=== PATIENT | male | born 1975 | race Two or more races ===

== ENCOUNTER 2020-12-09 09:25 | Inpatient (IN) | payer SELFPAY ==
[~2020-12-09] VITALS: Ht 167.6 cm; Wt 72.5 kg
[~2020-12-09 09:25] MED LIST: ACEDIPPM; AMOX500 PO; CIPR500 PO; CLAR500 PO; CYCL10 PO; Crutch1 EACH MISC; HYDACE5 PO; IBUP600 PO; NAPR500 PO; NAPR550 PO; Naprosyn500 MG PO; OMEP40CA12 PO; OXYACE5T PO; PENVK500 PO; PROM25 PO; RXNAPNA550 PO; TRAM50 PO; Ultram50 MG PO
[2020-12-09 10:35] LABS: BASOPHILS ABSOLUTE AUTO 0.04 K/mm3 (0.00-0.23); BASOPHILS PERCENT AUTO 0 % (0-2); EOSINOPHILS PERCENT AUTO 3 % (0-6); Hemoglobin 16.2 g/dL (13.5-17.5); IMMATURE GRAN ABSOLUTE AUTO 0.03 K/mm3 (0.00-0.10); IMMATURE GRAN PERCENT AUTO 0 % (0-1); LYMPHOCYTES ABSOLUTE AUTO 1.76 K/mm3 (0.84-5.20); LYMPHOCYTES PERCENT AUTO 19 % (21-46); MONOCYTES ABSOLUTE AUTO 0.58 K/mm3 (0.16-1.47); MONOCYTES PERCENT AUTO 6 % (4-13); Mean Corpuscular HGB Conc 34.5 g/dL (31.5-36.5); Mean Corpuscular Volume 87 fL (80-100); Mean Platelet Volume 11.1 fL (9.1-12.4); NEUTROPHILS ABSOLUTE AUTO 6.64 K/mm3 (1.96-9.15); NEUTROPHILS PERCENT AUTO 71 % (41-73); Platelet Count 383 K/mm3 (150-400); RDW Standard Deviation 44.1 fL (35.1-46.3); White Blood Cell Count 9.35 K/mm3 (4.00-11.30)
[2020-12-09 11:06] LABS: Alanine Aminotransfer (ALT/SGP 95 U/L (12-78); Albumin, Blood 3.2 g/dL (3.4-5.0); Alk Phos 81 U/L (50-136); Anion Gap 7 mmol/L (6-16); Aspartate Aminotrans (AST/SGOT 48 U/L (12-37); Bilirubin, Total 1.1 mg/dL (0.1-1.0); Blood Urea Nitrogen 14 mg/dL (8-24); Bun/Creatinine Ratio 16.8 (12.0-20.0); CO2, Blood 21 mmol/L (21-32); Calcium, Blood 8.7 mg/dL (8.5-10.1); Chloride, Blood 112 mmol/L (98-108); Creatinine, Blood 0.84 mg/dL (0.60-1.20); Globulin, Blood 3.3 g/dL (2.2-4.0); Glomerular Filtration Rate >60 (60-); Glucose, Blood 107 mg/dL (70-99); Potassium, Blood 4.3 mmol/L (3.5-5.5); Sodium, Blood 140 mmol/L (136-145); Total Protein, Blood 6.5 g/dL (6.4-8.2); Troponin I <0.015 ng/mL (0.000-0.040)
[2020-12-09 11:49] LABS: Source, Urine Clean Catch
[2020-12-09 11:56] LABS: Appearance, Urine Clear (Clear); Bilirubin, Urine Neg (Neg); Blood, Urine Neg (Neg); Color, Urine Yellow (P-Yellow); Glucose Qualitative, Urine Neg (Neg); Ketones, Urine Neg (Neg); Leukocyte Esterase, Urine Neg (Neg); Nitrite, Urine Neg (Neg); Protein, Urine Neg (Neg); Specific Gravity, Urine 1.015 (1.003-1.022); Urobilinogen, Urine NORM (Normal)
[2020-12-09 12:13] LABS: U Amphetamine Screen DETECTED; U Barbituate Screen Not Detected; U Benzodiazapine Screen Not Detected; U Buprenorphine Screen Not Detected; U Cannabinoids Screen Not Detected; U Cocaine Screen Not Detected; U Methadone Screen Not Detected; U Methamphetamine Screen DETECTED; U Opiates Screen Not Detected; U Oxycodone Screen Not Detected; U Phencyclidine Screen Not Detected; U Propoxyphene Screen Not Detected
--- NOTE | 2020-12-09 16:43 | NUR ---
Patient is a 44 year old male admitted to medical floor Room 340 for new onset of CHF. He was initially presented to ED for worsening shortness of breath for past three days. Per ED report, patient started to have SOB after removing" christian water " from mother's house. Lab work at ED indicate elevated D-Dimer 1.01, tested positive for methamphetamine , BNP 500 , and Chest x-ray shows congestive failure and pulmonary emboli. During admission assesment , patient is alert and oriented x4 , able to give history of current medical condition. 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 States that after getting home he started to have shortness of breath , dizziness and tiredness, and today he came to ED for evaluation. Reports that he lives in [place] and came here to help a friend.C/o of mild SOB. Denies any headache, nausea , chest pain and dizziness. Denies current recreational drug use except percocet that he had from his mother three days ago. Patient is a current smoke weed/marijuana . patient has multiple tatoos on him. He was oriented to the room and all safety measures place.Physical exam is unremarkable. Will continue to monitor.
--- NOTE | 2020-12-10 04:41 | NUR ---
SHIFT SUMMARY PT [id number]. ADMITTED FOR NEW ONSET OF CHF. DENIES CHEST PAIN. PT C/O HEADACHE THROUGHOUT SHIFT, MEDICATED PER APR. NO SIGNIFICANT EVENTS DURING THIS SHIFT.
[2020-12-10 09:25] LABS: BASOPHILS ABSOLUTE AUTO 0.03 K/mm3 (0.00-0.23); BASOPHILS PERCENT AUTO 0 % (0-2); EOSINOPHILS ABSOLUTE AUTO 0.45 K/mm3 (0.00-0.68); EOSINOPHILS PERCENT AUTO 5 % (0-6); Hematocrit 48.5 % (37.0-53.0); IMMATURE GRAN ABSOLUTE AUTO 0.03 K/mm3 (0.00-0.10); IMMATURE GRAN PERCENT AUTO 0 % (0-1); LYMPHOCYTES ABSOLUTE AUTO 1.48 K/mm3 (0.84-5.20); LYMPHOCYTES PERCENT AUTO 17 % (21-46); MONOCYTES ABSOLUTE AUTO 0.64 K/mm3 (0.16-1.47); MONOCYTES PERCENT AUTO 7 % (4-13); Mean Corpuscular HGB 29.2 pg (26.0-34.0); Mean Corpuscular HGB Conc 35.1 g/dL (31.5-36.5); Mean Corpuscular Volume 83 fL (80-100); Mean Platelet Volume 11.3 fL (9.1-12.4); NEUTROPHILS ABSOLUTE AUTO 6.03 K/mm3 (1.96-9.15); NEUTROPHILS PERCENT AUTO 70 % (41-73); Platelet Count 349 K/mm3 (150-400); RDW Coefficient Variation 13.8 % (11.7-14.2); RDW Standard Deviation 41.9 fL (35.1-46.3); Red Blood Cell Count 5.82 M/mm3 (4.30-5.90); White Blood Cell Count 8.66 K/mm3 (4.00-11.30)
[2020-12-10 09:52] LABS: Alanine Aminotransfer (ALT/SGP 87 U/L (12-78); Albumin, Blood 3.3 g/dL (3.4-5.0); Albumin/Globulin Ratio 0.9 (0.8-1.8); Alk Phos 88 U/L (50-136); Anion Gap 7 mmol/L (6-16); Aspartate Aminotrans (AST/SGOT 36 U/L (12-37); Bilirubin, Total 1.3 mg/dL (0.1-1.0); Blood Urea Nitrogen 18 mg/dL (8-24); CO2, Blood 25 mmol/L (21-32); Calcium, Blood 8.9 mg/dL (8.5-10.1); Chloride, Blood 109 mmol/L (98-108); Globulin, Blood 3.6 g/dL (2.2-4.0); Glomerular Filtration Rate >60 (60-); Glucose, Blood 109 mg/dL (70-99); Potassium, Blood 3.4 mmol/L (3.5-5.5); Sodium, Blood 141 mmol/L (136-145); Total Protein, Blood 6.9 g/dL (6.4-8.2)
--- NOTE | 2020-12-10 15:23 | NUR ---
Alert and oriented x4 , independent with ADLS. C/O headache, tylenol was given and it was effective . vital signs are improving. Patient left AMA at 1530.
== END 2020-12-10 15:25 | disposition left against medical advice (07) | DRG 293 ==
LOC: ER 09:25 → MEDS 09:26
PROVIDERS: Emergency Medicine; Nurse Practitioner Acute Care; Physician Assistant; ADMIT Hospitalist
DX: I50.20 Unspecified systolic (congestive) heart failure (principal); R07.9 Chest pain, unspecified; F15.10 Other stimulant abuse, uncomplicated; I10 Essential (primary) hypertension; Z20.822 Contact with and (suspected) exposure to COVID-19; I08.1 Rheumatic disorders of both mitral and tricuspid valves; Z53.29 Procedure and treatment not carried out because of patient's decision for other reasons; Z87.891 Personal history of nicotine dependence; Z85.01 Personal history of malignant neoplasm of esophagus; Z91.14 Patient's other noncompliance with medication regimen; Z86.61 Personal history of infections of the central nervous system
CPT/HCPCS: 36415; 71045; 71260; 80053; 81003; 83735; 83880; 84484; 85025; 85379; 86140; 93005; 93010; 96372; 96374; 96375; 96376; 99285-25; A9270; C8929; G0378; J1650; J1940; J3010; Q9957; Q9967

== ENCOUNTER → 2022-12-23 | Outpatient (CLI) | payer OTHER ==
[2022-12-23 19:05] LABS: BASOPHILS ABSOLUTE AUTO 0.03 K/mm3 (0.00-0.23); BASOPHILS PERCENT AUTO 1 % (0-2); EOSINOPHILS PERCENT AUTO 5 % (0-6); Hematocrit 42.7 % (37.0-53.0); IMMATURE GRAN ABSOLUTE AUTO 0.03 K/mm3 (0.00-0.10); IMMATURE GRAN PERCENT AUTO 1 % (0-1); LYMPHOCYTES ABSOLUTE AUTO 1.95 K/mm3 (0.84-5.20); LYMPHOCYTES PERCENT AUTO 30 % (21-46); MONOCYTES ABSOLUTE AUTO 0.73 K/mm3 (0.16-1.47); MONOCYTES PERCENT AUTO 11 % (4-13); Mean Corpuscular HGB 29.9 pg (26.0-34.0); Mean Corpuscular HGB Conc 35.1 g/dL (31.5-36.5); Mean Corpuscular Volume 85 fL (80-100); Mean Platelet Volume 10.9 fL (9.1-12.4); NEUTROPHILS ABSOLUTE AUTO 3.53 K/mm3 (1.96-9.15); NEUTROPHILS PERCENT AUTO 54 % (41-73); Platelet Count 301 K/mm3 (150-400); RDW Coefficient Variation 12.6 % (11.7-14.2); RDW Standard Deviation 38.5 fL (35.1-46.3); Red Blood Cell Count 5.02 M/mm3 (4.30-5.90); White Blood Cell Count 6.57 K/mm3 (4.00-11.30)
[2022-12-23 19:54] LABS: Alanine Aminotransfer (ALT/SGP 68 U/L (12-78); Albumin, Blood 4.1 g/dL (3.4-5.0); Alk Phos 78 U/L (50-136); Anion Gap 5 mmol/L (6-16); Aspartate Aminotrans (AST/SGOT 19 U/L (12-37); Bilirubin, Total 0.4 mg/dL (0.1-1.0); Blood Urea Nitrogen 20 mg/dL (8-24); Bun/Creatinine Ratio 25.4 (12.0-20.0); CHOL/HDL RATIO 4.7; CO2, Blood 24 mmol/L (21-32); Chloride, Blood 108 mmol/L (98-108); Cholesterol 223 mg/dL (50-200); Creatinine, Blood 0.79 mg/dL (0.60-1.20); Globulin, Blood 4.2 g/dL (2.2-4.0); Glomerular Filtration Rate 111 (60-); Glucose, Blood 98 mg/dL (70-99); HDL Cholesterol 47 mg/dL (>39); LDL/HDL RATIO 3.1; Low Density Lipoprotein Chol 146 mg/dL (0-110); Sodium, Blood 137 mmol/L (136-145); Total Protein, Blood 8.3 g/dL (6.4-8.2); Triglycerides 151 mg/dL (30-160); Very Low Density Lipoprot Chol 30 mg/dL (6-32)
== END ==
LOC: LAB 18:51 → LAB SHORT 18:51
PROVIDERS: Student in an Organized Health Care Education/Training Program
DX: I50.22 Chronic systolic (congestive) heart failure (principal); Z13.1 Encounter for screening for diabetes mellitus; Z11.59 Encounter for screening for other viral diseases; Z11.4 Encounter for screening for human immunodeficiency virus [HIV]
CPT/HCPCS: 80053; 80061; 83036; 84443; 85025; 86803

== ENCOUNTER 2023-08-09 14:56 | Emergency (ER) | payer OTHER ==
[~2023-08-09] VITALS: Ht 167.6 cm; Wt 76.2 kg
[2023-08-09 15:07] VITALS: BP 184/118
[2023-08-09] MEDS ORDERED: Acetaminophen 500 MG Tab PO ONE (16:20)
[2023-08-09] MEDS ORDERED: Ketorolac Tromethamine 30mg Vial IM ONE (16:20)
== END 2023-08-09 16:45 | disposition home or self-care (01) ==
LOC: ER 14:56
DX: G62.9 Polyneuropathy, unspecified (principal); I10 Essential (primary) hypertension; Z91.018 Allergy to other foods
CPT/HCPCS: 96372; 99283-25; A9270; J1885

== ENCOUNTER 2023-09-09 17:28 | Observation (INO) | payer OTHER ==
[~2023-09-09] VITALS: Ht 167.6 cm; Wt 77.6 kg
[2023-09-09 18:14] LABS: BASOPHILS ABSOLUTE AUTO 0.02 K/mm3 (0.00-0.23); BASOPHILS PERCENT AUTO 0 % (0-2); EOSINOPHILS ABSOLUTE AUTO 0.39 K/mm3 (0.00-0.68); EOSINOPHILS PERCENT AUTO 5 % (0-6); Hemoglobin 14.4 g/dL (13.5-17.5); IMMATURE GRAN ABSOLUTE AUTO 0.03 K/mm3 (0.00-0.10); IMMATURE GRAN PERCENT AUTO 0 % (0-1); LYMPHOCYTES ABSOLUTE AUTO 1.33 K/mm3 (0.84-5.20); LYMPHOCYTES PERCENT AUTO 17 % (21-46); MONOCYTES ABSOLUTE AUTO 0.35 K/mm3 (0.16-1.47); MONOCYTES PERCENT AUTO 4 % (4-13); Mean Corpuscular HGB 29.2 pg (26.0-34.0); Mean Corpuscular HGB Conc 34.3 g/dL (31.5-36.5); Mean Corpuscular Volume 85 fL (80-100); Mean Platelet Volume 10.9 fL (9.1-12.4); NEUTROPHILS ABSOLUTE AUTO 5.93 K/mm3 (1.96-9.15); NEUTROPHILS PERCENT AUTO 74 % (41-73); Platelet Count 280 K/mm3 (150-400); RDW Coefficient Variation 12.8 % (11.7-14.2); RDW Standard Deviation 39.4 fL (35.1-46.3); Red Blood Cell Count 4.93 M/mm3 (4.30-5.90); White Blood Cell Count 8.05 K/mm3 (4.00-11.30)
[2023-09-09 18:37] LABS: Albumin, Blood 3.2 g/dL (3.4-5.0); Albumin/Globulin Ratio 0.9 (0.8-1.8); Bilirubin, Total 0.4 mg/dL (0.1-1.0); Bun/Creatinine Ratio 11.5 (12.0-20.0); Calcium, Blood 8.4 mg/dL (8.5-10.1); Creatinine, Blood 1.04 mg/dL (0.60-1.20); Globulin, Blood 3.5 g/dL (2.2-4.0); Potassium, Blood 3.6 mmol/L (3.5-5.5); Total Protein, Blood 6.7 g/dL (6.4-8.2)
[2023-09-09] MEDS ORDERED: Lidocaine 2% Viscous Soln 15 ML UDC PO ONE (20:25)
[2023-09-09] MEDS ORDERED: Mag Hydrox/AL Hydrox/Simeth 30 ML UDC PO ONE (20:25)
[2023-09-09] MEDS ORDERED: CARVEDILOL6.25 MG PO (20:52)
[2023-09-09] MEDS ORDERED: LOSA25 PO (20:53)
[2023-09-09] MEDS ORDERED: AMLODIPINE BESYL5 MG PO (20:53)
[2023-09-09] MEDS ORDERED: Ketorolac Tromethamine 30mg Vial IV ONE (21:55)
[2023-09-10] MEDS ORDERED: Nitroglycerin 0.4 MG SUBL SL PRN (00:10)
[2023-09-10] MEDS ORDERED: FentaNYL Citrate 50 MCG/ML 2 ML Injection IV PRN (00:10)
[2023-09-10] MEDS ORDERED: Ondansetron HCl 2 MG / ML 2ML Vial IV PRN (00:10)
[2023-09-10] MEDS ORDERED: NS 1,000 ML IV ONE (00:35)
[2023-09-10] MEDS ORDERED: Mag Hydrox/Al Hydrox/Simeth 72 ML,Lidocaine 2% Viscous Soln 36 ML,Atropine/Scopalam/Hyo... PO PRN (00:35)
[2023-09-10 03:39] VITALS: BP 130/95
[2023-09-10] MEDS ORDERED: Potassium Chloride 40 MEQ in NS 250 ML IV ONE (03:45)
[2023-09-10 05:03] LABS: BASOPHILS ABSOLUTE AUTO 0.02 K/mm3 (0.00-0.23); BASOPHILS PERCENT AUTO 0 % (0-2); EOSINOPHILS ABSOLUTE AUTO 0.35 K/mm3 (0.00-0.68); EOSINOPHILS PERCENT AUTO 6 % (0-6); Hematocrit 39.5 % (37.0-53.0); Hemoglobin 13.3 g/dL (13.5-17.5); IMMATURE GRAN ABSOLUTE AUTO 0.01 K/mm3 (0.00-0.10); IMMATURE GRAN PERCENT AUTO 0 % (0-1); LYMPHOCYTES ABSOLUTE AUTO 2.09 K/mm3 (0.84-5.20); LYMPHOCYTES PERCENT AUTO 33 % (21-46); MONOCYTES ABSOLUTE AUTO 0.56 K/mm3 (0.16-1.47); MONOCYTES PERCENT AUTO 9 % (4-13); Mean Corpuscular HGB 28.8 pg (26.0-34.0); Mean Corpuscular HGB Conc 33.7 g/dL (31.5-36.5); Mean Corpuscular Volume 86 fL (80-100); Mean Platelet Volume 10.9 fL (9.1-12.4); NEUTROPHILS ABSOLUTE AUTO 3.31 K/mm3 (1.96-9.15); NEUTROPHILS PERCENT AUTO 52 % (41-73); Platelet Count 252 K/mm3 (150-400); RDW Coefficient Variation 12.7 % (11.7-14.2); RDW Standard Deviation 39.2 fL (35.1-46.3); Red Blood Cell Count 4.62 M/mm3 (4.30-5.90); White Blood Cell Count 6.34 K/mm3 (4.00-11.30)
[2023-09-10 05:27] LABS: Albumin, Blood 3.1 g/dL (3.4-5.0); Bilirubin, Total 0.4 mg/dL (0.1-1.0); Bun/Creatinine Ratio 15.6 (12.0-20.0); Calcium, Blood 8.6 mg/dL (8.5-10.1); Creatinine, Blood 1.09 mg/dL (0.60-1.20); Potassium, Blood 3.5 mmol/L (3.5-5.5); Total Protein, Blood 6.1 g/dL (6.4-8.2)
[2023-09-10 07:43] VITALS: BP 150/108
[2023-09-10] MEDS ORDERED: Enoxaparin 40 MG/0.4 ML SYR SC SCH (09:00)
[2023-09-10] MEDS ORDERED: Cyclobenzaprine HCl 10 MG Tab PO PRN (09:00)
[2023-09-10] MEDS ORDERED: Losartan Potassium 50 MG Tab PO SCH (09:00)
[2023-09-10] MEDS ORDERED: AmLODIPine Besylate 5 MG Tab PO SCH (09:00)
[2023-09-10] MEDS ORDERED: Cyclobenzaprine HCl 10 MG Tab PO ONE (09:00)
[2023-09-10] MEDS ORDERED: Carvedilol 6.25 MG Tab PO SCH (09:00)
[2023-09-10] MEDS ORDERED: CYCL10 PO (12:08)
--- NOTE | 2023-09-10 12:29 | NUR ---
DISCHARGE PT HAS DENIED CHEST PAIN THIS SHIFT. DISCHARGE ORDERS RECIEVED. PT VERBALIZED UNDERSTANDING OF MEDICATIONS AND PROVIDER FOLLOW UP INSTRUCTIONS. IV DC'D. PT DRESSED SELF. PT TO BE PICKED UP BY SPOUSE.
== END 2023-09-10 13:00 | disposition home or self-care (01) ==
LOC: ER 17:28 → ERHOLD 17:29 → PCU 09-10 03:32
PROVIDERS: Physician Assistant; ADMIT Internal Medicine
DX: R07.89 Other chest pain (principal); I11.0 Hypertensive heart disease with heart failure; I50.22 Chronic systolic (congestive) heart failure; Z87.891 Personal history of nicotine dependence; Z91.018 Allergy to other foods; Z79.899 Other long term (current) drug therapy
CPT/HCPCS: 36415; 71046; 80053; 83690; 83735; 83880; 84484; 85025; 85379; 93005; 93010; 96372; 96374; 99285-25; A9270; G0378; J1650; J1885; J3480; J7030; J7050

== ENCOUNTER 2024-05-26 04:34 | Inpatient (IN) | payer OTHER ==
[~2024-05-26] VITALS: Ht 167.6 cm; Wt 65.6 kg
[~2024-05-26 04:34] MED LIST changes: +AMLODIPINE BESYL5 MG PO; +CARVEDILOL6.25 MG PO; +LOSA25 PO
[2024-05-26] MEDS ORDERED: LOSA50 PO (04:50)
[2024-05-26] MEDS ORDERED: SPIRONOLACTONE50 MG PO (04:51)
[2024-05-26] MEDS ORDERED: STEGLATRO5 MG PO (04:51)
[2024-05-26 05:36] LABS: BASOPHILS ABSOLUTE AUTO 0.04 K/mm3 (0.00-0.23); BASOPHILS PERCENT AUTO 0 % (0-2); EOSINOPHILS ABSOLUTE AUTO 0.28 K/mm3 (0.00-0.68); EOSINOPHILS PERCENT AUTO 3 % (0-6); Hematocrit 44.4 % (37.0-53.0); Hemoglobin 14.7 g/dL (13.5-17.5); IMMATURE GRAN ABSOLUTE AUTO 0.03 K/mm3 (0.00-0.10); IMMATURE GRAN PERCENT AUTO 0 % (0-1); LYMPHOCYTES ABSOLUTE AUTO 1.56 K/mm3 (0.84-5.20); LYMPHOCYTES PERCENT AUTO 16 % (21-46); MONOCYTES ABSOLUTE AUTO 0.69 K/mm3 (0.16-1.47); MONOCYTES PERCENT AUTO 7 % (4-13); Mean Corpuscular HGB 29.8 pg (26.0-34.0); Mean Corpuscular HGB Conc 33.1 g/dL (31.5-36.5); Mean Corpuscular Volume 90 fL (80-100); Mean Platelet Volume 10.9 fL (9.1-12.4); NEUTROPHILS ABSOLUTE AUTO 7.45 K/mm3 (1.96-9.15); NEUTROPHILS PERCENT AUTO 74 % (41-73); Platelet Count 310 K/mm3 (150-400); Red Blood Cell Count 4.93 M/mm3 (4.30-5.90); White Blood Cell Count 10.05 K/mm3 (4.00-11.30)
[2024-05-26 06:01] LABS: Albumin, Blood 3.1 g/dL (3.4-5.0); Albumin/Globulin Ratio 0.9 (0.8-1.8); Bilirubin, Total 0.5 mg/dL (0.1-1.0); Bun/Creatinine Ratio 19.4 (12.0-20.0); Calcium, Blood 8.2 mg/dL (8.5-10.1); Creatinine, Blood 1.55 mg/dL (0.60-1.20); Globulin, Blood 3.4 g/dL (2.2-4.0); Potassium, Blood 4.5 mmol/L (3.5-5.5); Total Protein, Blood 6.5 g/dL (6.4-8.2)
[2024-05-26] MEDS ORDERED: Morphine Sulfate 4 MG/1 ML Injection IV ONE (06:30)
[2024-05-26] MEDS ORDERED: Furosemide 10 MG / ML 2ML Vial IV ONE ×2 (06:30→07:15)
[2024-05-26] MEDS ORDERED: Ondansetron HCl 2 MG / ML 2ML Vial IV ONE (06:55)
[2024-05-26] MEDS ORDERED: Polyethylene Glycol 3350 17 gm PO PRN (07:40)
[2024-05-26] MEDS ORDERED: FLU VACC TS2024-25(6MOS UP)/PF 45 MCG/0.5 ML SYRINGE IM SCH (07:45)
[2024-05-26] MEDS ORDERED: Prochlorperazine Edisylate 10 mg Vial IV PRN (07:45)
[2024-05-26] MEDS ORDERED: OxyCODONE HCL 5 MG TAB PO PRN (07:45)
[2024-05-26] MEDS ORDERED: Carvedilol 6.25 MG Tab PO SCH (08:00)
[2024-05-26] MEDS ORDERED: Empagliflozin 10 MG TAB PO SCH (09:00)
[2024-05-26] MEDS ORDERED: Furosemide 10 MG/ML 4ML Vial IV SCH (09:00)
[2024-05-26] MEDS ORDERED: Multivitamins 1 Tab PO SCH (09:00)
[2024-05-26 13:01] LABS: U Opiates Screen DETECTED
[2024-05-26 13:02] LABS: U Amphetamine Screen Not Detected; U Barbituate Screen Not Detected; U Benzodiazapine Screen Not Detected; U Buprenorphine Screen Not Detected; U Cannabinoids Screen Not Detected; U Cocaine Screen Not Detected; U Methadone Screen Not Detected; U Methamphetamine Screen Not Detected; U Oxycodone Screen Not Detected; U Phencyclidine Screen Not Detected
[2024-05-26 14:49] VITALS: BP 136/108
--- NOTE | 2024-05-26 17:09 | NUR ---
ADMITTED FROM ER, ALERT AND ORIENTED X4, SKIN INTACT, TELE NSR 60S, ECHO DONE ON FLOOR, PALLIATIVE CARE NOTIFIED OF CONSULT. 3L O2, LUNG BASES DIMINISHED, STAND BY ASSIST TO BSC, CALL LIGHT WITH IN REACH, WILL RELAY TO PM RN
[2024-05-26 20:57] VITALS: BP 111/70
[2024-05-26] MEDS ORDERED: Docusate Sodium/Senna 1 Tab PO SCH (21:00)
[2024-05-27 05:21] VITALS: BP 130/105
[2024-05-27 06:41] LABS: Hematocrit 44.7 % (37.0-53.0); Hemoglobin 15.2 g/dL (13.5-17.5); Mean Corpuscular HGB 29.7 pg (26.0-34.0); Mean Corpuscular Volume 88 fL (80-100); Mean Platelet Volume 11.8 fL (9.1-12.4); Platelet Count 296 K/mm3 (150-400); RDW Coefficient Variation 14.3 % (11.7-14.2); RDW Standard Deviation 45.6 fL (35.1-46.3); Red Blood Cell Count 5.11 M/mm3 (4.30-5.90); White Blood Cell Count 7.51 K/mm3 (4.00-11.30)
[2024-05-27 07:15] LABS: Magnesium, Blood 2.1 mg/dL (1.6-2.4)
[2024-05-27 07:16] LABS: Albumin, Blood 2.9 g/dL (3.4-5.0); Anion Gap 9 mmol/L (3-11); Blood Urea Nitrogen 39 mg/dL (8-24); Bun/Creatinine Ratio 31.5 (12.0-20.0); CO2, Blood 25 mmol/L (21-32); Calcium, Blood 8.1 mg/dL (8.5-10.1); Chloride, Blood 106 mmol/L (98-108); Creatinine, Blood 1.24 mg/dL (0.60-1.20); Glomerular Filtration Rate 72 (60-); Glucose, Blood 97 mg/dL (70-99); Phosphorus, Blood 4.1 mg/dL (2.5-4.9); Potassium, Blood 3.8 mmol/L (3.5-5.5); Sodium, Blood 136 mmol/L (136-145)
[2024-05-27 07:27] VITALS: BP 126/104
[2024-05-27] MEDS ORDERED: Losartan Potassium 25 MG Tab PO SCH (09:00)
[2024-05-27] MEDS ORDERED: Enoxaparin 40 MG/0.4 ML SYR SC SCH (09:00)
[2024-05-27] MEDS ORDERED: Spironolactone 12.5 MG TAB PO SCH (09:00)
[2024-05-27 16:49] VITALS: BP 107/72
--- NOTE | 2024-05-27 18:05 | NUR ---
ALERT AND ORIENTED X4, CLAMMY AND DYAPHRORETIC, CLEARLY MAKES NEEDS KNOWN, PATIENT SIMONE DOWN TO 49 WHILE SLEEPING, RELAYED TO DR FREY, PATIENT ATE ALL MEALS, ENCOURAGED TO DEEP BREATH, 2.5 L VIA NC, CALL LIGHT WITH IN REACH, WILL RELAY TO PM RN
[2024-05-27 19:59] VITALS: BP 128/97
[2024-05-28 04:53] VITALS: BP 109/81
--- NOTE | 2024-05-28 05:22 | NUR ---
SHIFT SUMMARY PT IS ALERT AND ORIENTED TIMES 4. PT IS ADMITTED FOR ACUTE HYPOXIC RESPIRATORY FAILURE. PT APPEARED TO BE SLEEPING ON AND OFF THROUGH THE NIGHT. PT WAS RECEPTIVE TO CARE. APPROPRIATE WITH CALL LIGHT, TELE SINUS RHYTHM ON 2.5L O2. BED IN LOW POSITION, CALL LIGHT WITHIN REACH, RAILS TIMES 2.
[2024-05-28 05:29] LABS: Hematocrit 48.3 % (37.0-53.0); Hemoglobin 16.3 g/dL (13.5-17.5); Mean Corpuscular HGB 29.5 pg (26.0-34.0); Mean Corpuscular HGB Conc 33.7 g/dL (31.5-36.5); Mean Corpuscular Volume 87 fL (80-100); Mean Platelet Volume 11.2 fL (9.1-12.4); Platelet Count 324 K/mm3 (150-400); RDW Coefficient Variation 14.4 % (11.7-14.2); RDW Standard Deviation 45.3 fL (35.1-46.3); Red Blood Cell Count 5.53 M/mm3 (4.30-5.90); White Blood Cell Count 8.41 K/mm3 (4.00-11.30)
[2024-05-28 06:00] LABS: Albumin, Blood 3.3 g/dL (3.4-5.0); Anion Gap 9 mmol/L (3-11); Blood Urea Nitrogen 38 mg/dL (8-24); Bun/Creatinine Ratio 29.7 (12.0-20.0); CO2, Blood 26 mmol/L (21-32); Calcium, Blood 8.7 mg/dL (8.5-10.1); Chloride, Blood 104 mmol/L (98-108); Creatinine, Blood 1.28 mg/dL (0.60-1.20); Glomerular Filtration Rate 69 (60-); Glucose, Blood 97 mg/dL (70-99); Magnesium, Blood 2.2 mg/dL (1.6-2.4); Phosphorus, Blood 4.1 mg/dL (2.5-4.9); Potassium, Blood 4.1 mmol/L (3.5-5.5); Sodium, Blood 135 mmol/L (136-145)
[2024-05-28 07:47] VITALS: BP 129/99
[2024-05-28 16:19] VITALS: BP 112/81
--- NOTE | 2024-05-28 18:00 | NUR ---
NO CHANGES, ALERT AND ORIENTED X4, SHOWERING NOW, GOOD APPETITE, CALL LIGHT WITH IN REACH, WILL RELAY TO PM RN
--- NOTE | 2024-05-28 18:59 | NUR ---
INITIAL PALLIATIVE CARE VISIT: LATE ENTRY VISIT 05/27/24 AT 1345. MET WITH PT IN ROOM. DISCUSSED GOALS OF CARE. PT WANTS TO WEAN OFF OXYGEN SO HE CAN BE DISCHARGED FROM HOSPITAL. 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 PT DISCUSSES BARRIERS TO HOUSING. HE REPORTS HIM AND HIS WERE LIVING WITH [facility] BUT A FRIEND OF HIS BROUGHT MARIJUANA TO HER HOUSE AND WHEN IT FELL OUT OF HIS POCKET IN FRONT OF THE MIL, SHE DECIDED TO EVICT HIM FROM THE HOUSE. HE NOW LIVES AT [facility] IN A [place]ENT. HE DOES NOT HAVE ACCESS TO ELECTRICITY BUT HIS FRIEND DOES HAVE A GAS GENERATOR. PT STATES HE HAS GOAL TO STAY CLEAN FROM DRUGS BECAUSE IT IS WHAT CAUSED HIS CHF IN THE FIRST PLACE. HIS PCP PRESCRIBED MUSCLE RELAXERS INSTEAD OF NARCOTICS TO ASSIST WITH LOWER BACK PAIN MANAGEMENT AT HIS REQUEST. PT DOES STATE HE HAD DIFFICULTY GETTING TO APPOINTMENTS. HE WAS NOT AWARE HE HAS RIDE BENEFITS. NOW HE KNOWS HE WILL GO TO APPOINTMENTS. PT DOES NOT WISH TO MOVE OUT OF TOWN FOR WORK BECAUSE HIS STILL LIVES WITH HER MOTHER AND HE WANTS TO STAY CLOSE TO HER. PT HAS FOLLOWED UP WITH SERVICES ABOUT HOUSING BUT HAS NOT GOTTEN ANY UPDATES. ENCOURAGED PT TO CONTINUE TO REACH OUT TO SERVICES TO ENQUIRE ABOUT HOUSING. BARRIERS: NO ELECTRICITY AT HOME AND CURRENTLY ON 2.5 LPM VIA AR.
[2024-05-28 19:09] VITALS: BP 121/84
[2024-05-28 23:19] VITALS: BP 115/83
[2024-05-29 03:15] VITALS: BP 126/92
--- NOTE | 2024-05-29 06:42 | NUR ---
SHIFT SUMMARY PT IS ALERT AND ORIENTED TIMES 4. PT IS ADMITTED FOR ACUTE HYPOXIC RESPIRATORY FAILURE.1 PT APPEARED TO BE SLEEPING. PT WAS RECEPTIVE TO CARE. PT ASKED FOR SNACK. PT STATED WAS FEELING BETTER. APPROPRIATE WITH CALL LIGHT, TELE SINUS RHYTHM ON 2.5L O2. BED IN LOW POSITION, CALL LIGHT WITHIN REACH, RAILS TIMES 2.
[2024-05-29 06:51] LABS: Albumin, Blood 3.2 g/dL (3.4-5.0); Anion Gap 12 mmol/L (3-11); Blood Urea Nitrogen 38 mg/dL (8-24); Bun/Creatinine Ratio 31.1 (12.0-20.0); CO2, Blood 24 mmol/L (21-32); Calcium, Blood 8.5 mg/dL (8.5-10.1); Chloride, Blood 104 mmol/L (98-108); Creatinine, Blood 1.22 mg/dL (0.60-1.20); Glomerular Filtration Rate 73 (60-); Glucose, Blood 101 mg/dL (70-99); Magnesium, Blood 2.2 mg/dL (1.6-2.4); Phosphorus, Blood 3.8 mg/dL (2.5-4.9); Potassium, Blood 3.9 mmol/L (3.5-5.5); Sodium, Blood 136 mmol/L (136-145)
[2024-05-29 07:15] VITALS: BP 125/91
[2024-05-29] MEDS ORDERED: Spironolactone 25 MG Tab PO SCH (09:00)
[2024-05-29 11:49] VITALS: BP 104/75
[2024-05-29 16:17] VITALS: BP 112/78
--- NOTE | 2024-05-29 17:09 | NUR ---
SHIFT SUMMARY: PT A&O X4. PLEASANT AND COOPERATIVE WITH CARE. INDEPENDENT IN ROOM. NO ACUTE EVENTS THIS SHIFT. PLAN FOR PT TO D/C TO [place] TOMORROW TO GET BELONGINGS THEN GO TO [facility] HALFWAY. REMAINS ON IV DIURETICS. NEW IV PLACED BY VIRGILIO HERNANDEZ THIS SHIFT D/T PAIN AND LEAKING. PT NOW ON ROOM AIR MAINTAINING SATS. TELE IN PLACE RUNNING SINUS RHYTHM IN THE 70'S. CALL LIGHT IN REACH.
[2024-05-29 19:27] VITALS: BP 113/78
[2024-05-30 04:08] VITALS: BP 106/78
[2024-05-30 05:59] LABS: Hematocrit 48.9 % (37.0-53.0); Hemoglobin 16.8 g/dL (13.5-17.5); Mean Corpuscular HGB 29.9 pg (26.0-34.0); Mean Corpuscular HGB Conc 34.4 g/dL (31.5-36.5); Mean Corpuscular Volume 87 fL (80-100); Mean Platelet Volume 10.9 fL (9.1-12.4); Platelet Count 330 K/mm3 (150-400); RDW Coefficient Variation 14.3 % (11.7-14.2); Red Blood Cell Count 5.61 M/mm3 (4.30-5.90); White Blood Cell Count 7.75 K/mm3 (4.00-11.30)
[2024-05-30 06:19] LABS: Albumin, Blood 3.2 g/dL (3.4-5.0); Albumin/Globulin Ratio 0.9 (0.8-1.8); Bilirubin, Total 0.4 mg/dL (0.1-1.0); Bun/Creatinine Ratio 32.7 (12.0-20.0); Calcium, Blood 8.5 mg/dL (8.5-10.1); Creatinine, Blood 1.13 mg/dL (0.60-1.20); Globulin, Blood 3.4 g/dL (2.2-4.0); Magnesium, Blood 2.3 mg/dL (1.6-2.4); Potassium, Blood 4.3 mmol/L (3.5-5.5); Total Protein, Blood 6.6 g/dL (6.4-8.2)
[2024-05-30 07:15] VITALS: BP 110/86
[2024-05-30] MEDS ORDERED: Spironolactone 50 MG Tab PO SCH (09:00)
[2024-05-30] MEDS ORDERED: JARDIANCE10 MG PO (11:50)
[2024-05-30] MEDS ORDERED: MULVITA PO (11:51)
[2024-05-30] MEDS ORDERED: FURO40 PO (11:52)
[2024-05-30] MEDS ORDERED: MIRALAX17 GM PO (11:52)
--- NOTE | 2024-05-30 12:59 | NUR ---
DISCHARGE NOTE PT WAS ALERT AND ORIENTED X 4, VSS. HE DENIED FEELINGS OF CHEST PAIN/PRESSURE DURING SHIFT. HE REPORTED FEELING SOB UPON EXERTION. HE WAS INDEPENDENT IN THE ROOM. THIS RN DISCUSSED DISCHARGE INSTRUCTIONS INCLUDING FOLLOW UP APPOINTMENTS, HOME MEDICATIONS WELL HEART FAILURE EDUCATION W/ EMPHASIS ON CHECKING DAILY WEIGHTS. PT LEFT MEDICAL FLOOR AT APPROX. 1245 VIA WHEELCHAIR.
== END 2024-05-30 12:37 | disposition home or self-care (01) | DRG 291 ==
LOC: ER 04:34 → ERHOLD 07:39 → MEDS 14:45 → ENPENDDIS 05-30 11:06 → MEDS 05-30 12:37
PROVIDERS: Emergency Medicine; ADMIT Internal Medicine
DX: I11.0 Hypertensive heart disease with heart failure (principal); I50.23 Acute on chronic systolic (congestive) heart failure; N17.9 Acute kidney failure, unspecified; Z59.02 Unsheltered homelessness; E87.1 Hypo-osmolality and hyponatremia; I50.22 Chronic systolic (congestive) heart failure; R74.01 Elevation of levels of liver transaminase levels; I27.20 Pulmonary hypertension, unspecified; I08.1 Rheumatic disorders of both mitral and tricuspid valves; F15.10 Other stimulant abuse, uncomplicated; F10.10 Alcohol abuse, uncomplicated; R63.6 Underweight; Z91.148 Patient's other noncompliance with medication regimen for other reason; Z98.890 Other specified postprocedural states; Z79.899 Other long term (current) drug therapy; Z87.81 Personal history of (healed) traumatic fracture; Z91.018 Allergy to other foods; Z85.818 Personal history of malignant neoplasm of other sites of lip, oral cavity, and pharynx; Z87.891 Personal history of nicotine dependence; Z90.49 Acquired absence of other specified parts of digestive tract; Z87.39 Personal history of other diseases of the musculoskeletal system and connective tissue; Z68.25 Body mass index [BMI] 25.0-25.9, adult
CPT/HCPCS: 36415; 71046; 76770; 80053; 80069; 83690; 83735; 83880; 84484; 85025; 85027; 93005; 93010; 96374; 96375; 99285-25; A9270; C8929; J1650; J1940; J2270; J2405; Q9957

== ENCOUNTER 2024-06-25 10:25 | Emergency (ER) | payer OTHER ==
[~2024-06-25] VITALS: Ht 167.6 cm; Wt 72.6 kg
[~2024-06-25 10:25] MED LIST changes: +FURO40 PO; +JARDIANCE10 MG PO; +LOSA50 PO; +MIRALAX17 GM PO; +MULVITA PO; +SPIRONOLACTONE50 MG PO; +STEGLATRO5 MG PO
[2024-06-25 11:37] LABS: BASOPHILS ABSOLUTE AUTO 0.04 K/mm3 (0.00-0.23); BASOPHILS PERCENT AUTO 1 % (0-2); EOSINOPHILS ABSOLUTE AUTO 0.26 K/mm3 (0.00-0.68); EOSINOPHILS PERCENT AUTO 4 % (0-6); Hematocrit 44.7 % (37.0-53.0); Hemoglobin 14.9 g/dL (13.5-17.5); IMMATURE GRAN ABSOLUTE AUTO 0.01 K/mm3 (0.00-0.10); IMMATURE GRAN PERCENT AUTO 0 % (0-1); LYMPHOCYTES ABSOLUTE AUTO 1.28 K/mm3 (0.84-5.20); LYMPHOCYTES PERCENT AUTO 18 % (21-46); MONOCYTES ABSOLUTE AUTO 0.57 K/mm3 (0.16-1.47); MONOCYTES PERCENT AUTO 8 % (4-13); Mean Corpuscular HGB 29.9 pg (26.0-34.0); Mean Corpuscular HGB Conc 33.3 g/dL (31.5-36.5); Mean Corpuscular Volume 90 fL (80-100); Mean Platelet Volume 10.9 fL (9.1-12.4); NEUTROPHILS ABSOLUTE AUTO 4.89 K/mm3 (1.96-9.15); NEUTROPHILS PERCENT AUTO 69 % (41-73); Platelet Count 235 K/mm3 (150-400); RDW Coefficient Variation 14.6 % (11.7-14.2); RDW Standard Deviation 47.4 fL (35.1-46.3); Red Blood Cell Count 4.99 M/mm3 (4.30-5.90); White Blood Cell Count 7.05 K/mm3 (4.00-11.30)
[2024-06-25 12:01] LABS: Albumin, Blood 3.2 g/dL (3.4-5.0); Bilirubin, Total 0.5 mg/dL (0.1-1.0); Bun/Creatinine Ratio 24.5 (12.0-20.0); Creatinine, Blood 1.1 mg/dL (0.60-1.20); Globulin, Blood 3.1 g/dL (2.2-4.0); Magnesium, Blood 2.1 mg/dL (1.6-2.4); Potassium, Blood 4.5 mmol/L (3.5-5.5); Total Protein, Blood 6.3 g/dL (6.4-8.2)
[2024-06-25] MEDS ORDERED: Furosemide 10 MG/ML 4ML Vial IV ONE (14:30)
[2024-06-25] MEDS ORDERED: Carvedilol 6.25 MG Tab PO ONE (14:45)
[2024-06-25] MEDS ORDERED: Losartan Potassium 25 MG Tab PO ONE (14:45)
[2024-06-25] MEDS ORDERED: Empagliflozin 10 MG TAB PO ONE (14:45)
[2024-06-25 15:28] VITALS: BP 144/88
[2024-06-25] MEDS ORDERED: Coreg6.25 MG PO (16:03)
[2024-06-25] MEDS ORDERED: Lasix40 MG PO (16:03)
[2024-06-25] MEDS ORDERED: Aldactone50 MG PO (16:03)
[2024-06-25] MEDS ORDERED: JARDIANCE10 MG PO (16:03)
[2024-06-25] MEDS ORDERED: LOSA25 PO (16:03)
== END 2024-06-25 16:32 | disposition home or self-care (01) ==
LOC: ER 10:25
PROVIDERS: Emergency Medicine
DX: I11.0 Hypertensive heart disease with heart failure (principal); I50.23 Acute on chronic systolic (congestive) heart failure; Z76.0 Encounter for issue of repeat prescription; Z91.018 Allergy to other foods; Z79.899 Other long term (current) drug therapy; Z87.891 Personal history of nicotine dependence
CPT/HCPCS: 71046; 80053; 83735; 83880; 84484; 85025; 93005; 93010; 96374; 99285-25; A9270; J1938; J1940

== ENCOUNTER 2024-09-26 09:12 | Emergency (ER) | payer OTHER ==
[~2024-09-26] VITALS: Ht 167.6 cm; Wt 61.2 kg
[~2024-09-26 09:12] MED LIST changes: +Aldactone50 MG PO; +Coreg6.25 MG PO; +Lasix40 MG PO
[2024-09-26] MEDS ORDERED: LOSA50 PO ×2 (09:21→10:00)
[2024-09-26] MEDS ORDERED: Aldactone50 MG PO (10:00)
[2024-09-26] MEDS ORDERED: Coreg6.25 MG PO (10:00)
[2024-09-26] MEDS ORDERED: FURO40 PO (10:00)
[2024-09-26] MEDS ORDERED: JARDIANCE10 MG PO (10:00)
[2024-09-26 11:00] VITALS: BP 149/107
[2024-09-26] MEDS ORDERED: DAROLUTAMIDE 600 MG PO SCH (21:00)
[2024-09-27] MEDS ORDERED: Beta-Carotene (A) W-C & E/Min 1 Tab PO SCH (09:00)
== END 2024-09-26 11:09 | disposition home or self-care (01) ==
LOC: ER 09:12
DX: I11.0 Hypertensive heart disease with heart failure (principal); I50.9 Heart failure, unspecified; Z79.899 Other long term (current) drug therapy; Z87.891 Personal history of nicotine dependence
CPT/HCPCS: 93005; 93010; 99285-25; A9270; J1938

== ENCOUNTER 2024-11-28 07:28 | Emergency (ER) | payer OTHER ==
[~2024-11-28] VITALS: Ht 167.6 cm; Wt 77.6 kg
[2024-11-28 07:45] LABS: BASOPHILS ABSOLUTE AUTO 0.05 K/mm3 (0.00-0.23); BASOPHILS PERCENT AUTO 1 % (0-2); EOSINOPHILS ABSOLUTE AUTO 0.36 K/mm3 (0.00-0.68); EOSINOPHILS PERCENT AUTO 5 % (0-6); Hematocrit 44.6 % (37.0-53.0); Hemoglobin 15.1 g/dL (13.5-17.5); IMMATURE GRAN ABSOLUTE AUTO 0.02 K/mm3 (0.00-0.10); IMMATURE GRAN PERCENT AUTO 0 % (0-1); LYMPHOCYTES ABSOLUTE AUTO 1.97 K/mm3 (0.84-5.20); LYMPHOCYTES PERCENT AUTO 26 % (21-46); MONOCYTES ABSOLUTE AUTO 0.62 K/mm3 (0.16-1.47); MONOCYTES PERCENT AUTO 8 % (4-13); Mean Corpuscular HGB Conc 33.9 g/dL (31.5-36.5); Mean Corpuscular Volume 89 fL (80-100); NEUTROPHILS ABSOLUTE AUTO 4.56 K/mm3 (1.96-9.15); NEUTROPHILS PERCENT AUTO 60 % (41-73); NRBC ABSOLUTE 0.00 K/mm3 (0.00-0.02); NRBC Auto 0.0 /100 WBC (0.0-0.2); Platelet Count 249 K/mm3 (150-400); RDW Coefficient Variation 13.6 % (11.7-14.2); RDW Standard Deviation 44.2 fL (35.1-46.3)
[2024-11-28 08:04] LABS: Alanine Aminotransfer (ALT/SGP 52.0 U/L (12-78); Albumin, Blood 3.4 g/dL (3.4-5.0); Albumin/Globulin Ratio 1.1 (0.8-1.8); Anion Gap 8.0 mmol/L (3-11); Aspartate Aminotrans (AST/SGOT 37.0 U/L (12-37); Bilirubin, Total 0.5 mg/dL (0.1-1.0); Blood Urea Nitrogen 35.0 mg/dL (8-24); CO2, Blood 21.0 mmol/L (21-32); Calcium, Blood 8.7 mg/dL (8.5-10.1); Chloride, Blood 114.0 mmol/L (98-108); Creatinine, Blood 1.23 mg/dL (0.60-1.20); Globulin, Blood 3.2 g/dL (2.2-4.0); Glucose, Blood 114.0 mg/dL (70-99); Potassium, Blood 4.2 mmol/L (3.5-5.5); Sodium, Blood 139.0 mmol/L (136-145); Total Protein, Blood 6.6 g/dL (6.4-8.2)
[2024-11-28] MEDS ORDERED: AMLODIPINE BESYL5 MG PO ×2 (08:15→09:41)
[2024-11-28] MEDS ORDERED: Coreg6.25 MG PO (09:41)
[2024-11-28] MEDS ORDERED: FURO40 PO (09:41)
[2024-11-28] MEDS ORDERED: LOSA50 PO (09:42)
[2024-11-28] MEDS ORDERED: Aldactone50 MG PO (09:42)
[2024-11-28 10:45] VITALS: BP 142/115
== END 2024-11-28 10:45 | disposition home or self-care (01) ==
LOC: ER 07:28
PROVIDERS: Emergency Medicine
DX: I11.0 Hypertensive heart disease with heart failure (principal); I50.20 Unspecified systolic (congestive) heart failure; Z87.891 Personal history of nicotine dependence; Z79.899 Other long term (current) drug therapy; Z91.018 Allergy to other foods
CPT/HCPCS: 71046; 80053; 83880; 84484; 85025; 93005; 93010; 96374; 99285-25; J1938

== ENCOUNTER 2025-01-17 09:35 | Emergency (ER) | payer OTHER ==
[~2025-01-17] VITALS: Ht 167.6 cm; Wt 78.5 kg
[2025-01-17 10:44] VITALS: BP 156/114
[2025-01-17 11:29] LABS: BASOPHILS ABSOLUTE AUTO 0.03 K/mm3 (0.00-0.23); BASOPHILS PERCENT AUTO 0 % (0-2); EOSINOPHILS ABSOLUTE AUTO 0.33 K/mm3 (0.00-0.68); EOSINOPHILS PERCENT AUTO 3 % (0-6); Hematocrit 46.6 % (37.0-53.0); Hemoglobin 15.5 g/dL (13.5-17.5); IMMATURE GRAN ABSOLUTE AUTO 0.04 K/mm3 (0.00-0.10); IMMATURE GRAN PERCENT AUTO 0 % (0-1); LYMPHOCYTES ABSOLUTE AUTO 1.73 K/mm3 (0.84-5.20); LYMPHOCYTES PERCENT AUTO 15 % (21-46); MONOCYTES ABSOLUTE AUTO 1.06 K/mm3 (0.16-1.47); MONOCYTES PERCENT AUTO 9 % (4-13); Mean Corpuscular HGB Conc 33.3 g/dL (31.5-36.5); Mean Corpuscular Volume 90 fL (80-100); NEUTROPHILS ABSOLUTE AUTO 8.45 K/mm3 (1.96-9.15); NEUTROPHILS PERCENT AUTO 73 % (41-73); NRBC ABSOLUTE 0.00 K/mm3 (0.00-0.02); NRBC Auto 0.0 /100 WBC (0.0-0.2); Platelet Count 253 K/mm3 (150-400); RDW Coefficient Variation 13.9 % (11.7-14.2); RDW Standard Deviation 46.5 fL (35.1-46.3)
[2025-01-17 12:12] LABS: Alanine Aminotransfer (ALT/SGP 52.0 U/L (12-78); Albumin, Blood 3.5 g/dL (3.4-5.0); Albumin/Globulin Ratio 1.1 (0.8-1.8); Anion Gap 9.0 mmol/L (3-11); Bilirubin, Total 0.7 mg/dL (0.1-1.0); Blood Urea Nitrogen 38.0 mg/dL (8-24); CO2, Blood 21.0 mmol/L (21-32); Calcium, Blood 9.0 mg/dL (8.5-10.1); Chloride, Blood 111.0 mmol/L (98-108); Creatinine, Blood 1.2 mg/dL (0.60-1.20); Globulin, Blood 3.2 g/dL (2.2-4.0); Glucose, Blood 124.0 mg/dL (70-99); Potassium, Blood 4.4 mmol/L (3.5-5.5); Sodium, Blood 137.0 mmol/L (136-145); Total Protein, Blood 6.7 g/dL (6.4-8.2)
[2025-01-17] MEDS ORDERED: SPIR50 PO (12:41)
[2025-01-17] MEDS ORDERED: CARV6.25 PO (12:41)
[2025-01-17] MEDS ORDERED: LOSA50 PO (12:41)
[2025-01-17] MEDS ORDERED: FURO40 PO (12:41)
[2025-01-17 13:19] LABS: Aspartate Aminotrans (AST/SGOT 45.0 U/L (12-37)
== END 2025-01-17 12:53 | disposition left against medical advice (07) ==
LOC: ER 09:35
PROVIDERS: Family Medicine
DX: I50.20 Unspecified systolic (congestive) heart failure (principal); T50.906A Underdosing of unspecified drugs, medicaments and biological substances, initial encounter; Z91.148 Patient's other noncompliance with medication regimen for other reason; Z87.891 Personal history of nicotine dependence; Z79.899 Other long term (current) drug therapy
CPT/HCPCS: 36415; 71045; 80053; 83880; 84484; 85025; 93005; 93010; 99285-25; A9270